=== PATIENT | female | born 1990 | race African-American/Black ===

== ENCOUNTER 2018-06-11 17:58 | Inpatient (IN) | payer MEDICAID, MEDICARE ==
[~2018-06-11] VITALS: Ht 157.5 cm; Wt 97.5 kg
[2018-06-11] MEDS ORDERED: SODIUM CHLORIDE 0.9% 1,000 ML IV ONE (18:33)
[2018-06-11] MEDS ORDERED: LEVETIRACETAM 500MG TABLET PO ONE (18:45)
[2018-06-11] MEDS ORDERED: LORAZEPAM 2MG/ML CPJ IV ONE (18:45)
[2018-06-11] MEDS ORDERED: LEVETIRACETAM 1000MG/100ML 100 ML IV ONE (18:45)
[2018-06-11] MEDS ORDERED: LORAZEPAM 2MG/ML CPJ ONE (18:46)
[2018-06-11 19:27] LABS: BASOPHILS % 0.5 % (0.0-2.0); EOSINOPHILS % 0.9 % (0.0-5.0); HEMATOCRIT. 39.1 % (36.0-48.0); LYMPHOCYTES % 27.2 % (20.0-50.0); MEAN CORPUSCULAR HEMOGLOBIN 27.2 pg (28.0-32.0); MEAN CORPUSCULAR VOLUME 81.5 fL (81.0-99.0); MEAN PLATELET VOLUME 8.1 fl (7.4-10.4); MONOCYTES % 9.2 % (2.0-8.0); NEUTROPHILS % 62.2 % (40.0-76.0); PLATELET 211 x1000/uL (130-400); RED CELL DISTRIBUTION WIDTH 14.7 % (11.6-14.6)
[2018-06-11 19:32] LABS: CHLORIDE 110 mEq/L (98-107)
[2018-06-11 19:36] LABS: PARTIAL THROMBOPLASTIN TIME 25.6 sec (23.4-31.0); PROTHROMBIN TIME 9.8 sec (9.1-11.1)
[2018-06-11 19:38] LABS: ETHANOL BLOOD < 10 mg/dL; HCG SCREEN NEGATIVE
[2018-06-11 19:42] LABS: CREATINE KINASE 106 IU/L (26-192)
[2018-06-11 22:26] VITALS: BP 109/64
[2018-06-11 22:30] VITALS: BP 135/67
[2018-06-12] VITALS (21 sets, daily range): BP systolic 90–154; BP diastolic 40–77
[2018-06-12] MEDS ORDERED: ALBU6.7H INH (00:04)
[2018-06-12] MEDS ORDERED: ACETAMINOPHEN 325MG TABLET PO PRN (00:45)
[2018-06-12] MEDS ORDERED: HYDROCODONE/ACETAMINOPHEN 5/325MG TABLET PO PRN (00:45)
[2018-06-12] MEDS: IPRATROPIUM/ALBUTEROL 0.5-3(2.5)MG/3ML NEB HHN SCH ×6 (01:03→21:38)
[2018-06-12 05:55] LABS: BG CARBOXYHEMOGLOBIN 0.3 % (0.5-1.5); BG DEOXYHEMOGLOBIN 0.6 % (0.0-5.0); BG FRACTION INSPIRED OXYGEN 100; BG HCO3 ACT 24.8 mmol/L (22.0-26.0); BG METHEMOGLOBIN 0.5 % (0.0-1.5); BG OXYGEN SATURATION 99.4 % (92.0-98.5); BG OXYHEMOGLOBIN 98.6 % (94.0-97.0); BG PCO2 40.5 mmHg (35.0-45.0); BG PH 7.404 (7.350-7.450); BG PO2 402.7 mmHg (75.0-100.0); BG SAMPLE SITE LEFT RADIAL; BG VENT MODE MASK - NRB
[2018-06-12 06:45] LABS: EOSINOPHILS % 2.4 % (0.0-5.0); HEMATOCRIT. 37.5 % (36.0-48.0); HEMOGLOBIN. 12.6 g/dL (12.0-16.0); LYMPHOCYTES % 42.9 % (20.0-50.0); MEAN CORPUSCULAR HEMOGLOBIN 27.6 pg (28.0-32.0); MEAN CORPUSCULAR VOLUME 82.3 fL (81.0-99.0); MEAN PLATELET VOLUME 8.2 fl (7.4-10.4); MONOCYTES % 9.5 % (2.0-8.0); NEUTROPHILS % 44.2 % (40.0-76.0); PLATELET 211 x1000/uL (130-400); RED BLOOD CELL COUNT 4.56 mill/uL (4.2-5.4); RED CELL DISTRIBUTION WIDTH 14.4 % (11.6-14.6)
[2018-06-12 08:00] LABS: CHLORIDE 111 mEq/L (98-107)
[2018-06-12] MEDS ORDERED: PHENYTOIN SODIUM 1,000 MG in SODIUM CHLORIDE 0.9% 100 ML IV NR (08:00)
[2018-06-12] MEDS ORDERED: LEVETIRACETAM 500MG TABLET PO SCH ×2 (09:00→21:00)
[2018-06-12] MEDS ORDERED: LEVETIRACETAM 250MG TABLET PO NR (13:00)
[2018-06-12] MEDS ORDERED: POTASSIUM CHLORIDE 20MEQ TABLET SR PO NR (13:00)
[2018-06-12] MEDS: LAMOTRIGINE 25MG TABLET PO SCH (15:03)
[2018-06-12] MEDS: LORAZEPAM 2MG/ML CPJ IV PRN (16:06)
[2018-06-12] MEDS ORDERED: PIPERACILLIN/TAZ 3.375G PREMIX 50 ML IV SCH (18:00)
[2018-06-12] MEDS ORDERED: LORAZEPAM 2MG/ML CPJ IV PRN (19:00)
[2018-06-12] MEDS ORDERED: LEVETIRACETAM 1,000 MG in SODIUM CHLORIDE 0.9% 100 ML IV SCH (19:00)
[2018-06-12] MEDS: PIPERACILLIN/TAZ 3.375G PREMIX 50 ML IV SCH (19:21)
[2018-06-12] MEDS: LEVETIRACETAM 1,000 MG in SODIUM CHLORIDE 0.9% 100 ML IV SCH (21:08)
[2018-06-13] VITALS (48 sets, daily range): BP systolic 83–145; BP diastolic 33–87
[2018-06-13] MEDS: PIPERACILLIN/TAZ 3.375G PREMIX 50 ML IV SCH ×4 (00:38→18:13)
[2018-06-13] MEDS: LORAZEPAM 2MG/ML CPJ IV PRN ×6 (00:55→21:57)
[2018-06-13 01:01] LABS: BG BASE EXCESS -0.6 mmol/L (-2.0-2.0); BG CARBOXYHEMOGLOBIN 0.5 % (0.5-1.5); BG DEOXYHEMOGLOBIN 0.8 % (0.0-5.0); BG FRACTION INSPIRED OXYGEN 28; BG HCO3 ACT 24.6 mmol/L (22.0-26.0); BG METHEMOGLOBIN 0.4 % (0.0-1.5); BG OXYGEN SATURATION 99.2 % (92.0-98.5); BG OXYHEMOGLOBIN 98.3 % (94.0-97.0); BG PCO2 42.6 mmHg (35.0-45.0); BG PO2 168.2 mmHg (75.0-100.0); BG SAMPLE SITE RIGHT RADIAL; BG TOTAL HEMOGLOBIN 13.1 g/dL (12.0-18.0); BG VENT MODE NASAL CANNULA
[2018-06-13] MEDS: IPRATROPIUM/ALBUTEROL 0.5-3(2.5)MG/3ML NEB HHN SCH ×4 (01:06→20:38)
[2018-06-13] MEDS ORDERED: LIDOCAINE HCL 1% 20ML VIAL (Pyxis) INJ ONE (09:06)
[2018-06-13] MEDS ORDERED: LORAZEPAM 2MG/ML CPJ IV NR ×2 (09:15→11:15)
[2018-06-13] MEDS: LAMOTRIGINE 25MG TABLET PO SCH (09:48)
[2018-06-13] MEDS: DEXT 5%/0.45% NACL 1000ML 1,000 ML IV SCH ×2 (09:48→23:12)
[2018-06-13] MEDS: LEVETIRACETAM 1,000 MG in SODIUM CHLORIDE 0.9% 100 ML IV SCH ×2 (10:42→21:30)
[2018-06-13] MEDS ORDERED: NON FORMULARY PATIENT HOME MED XX SCH (11:15)
[2018-06-13] MEDS ORDERED: PANTOPRAZOLE SODIUM 40 MG/VIAL IV SCH (11:30)
[2018-06-13] MEDS: METHYLPREDNISOLONE SOD SUCC 40 MG/ML VIAL IV SCH ×2 (11:59→21:30)
[2018-06-13] MEDS ORDERED: PHENYTOIN SODIUM 500MG in SODIUM CHLORIDE 0.9% 50ML IV NR (12:00)
[2018-06-13] MEDS ORDERED: PHENOBARBITAL SODIUM 130MG/ML 1ML IV NR (12:00)
[2018-06-13 12:03] LABS: BG BASE EXCESS -0.2 mmol/L (-2.0-2.0); BG CARBOXYHEMOGLOBIN 0.3 % (0.5-1.5); BG FRACTION INSPIRED OXYGEN 32; BG HCO3 ACT 24.8 mmol/L (22.0-26.0); BG METHEMOGLOBIN 0.4 % (0.0-1.5); BG OXYHEMOGLOBIN 98.3 % (94.0-97.0); BG PH 7.389 (7.350-7.450); BG PO2 155.9 mmHg (75.0-100.0); BG SAMPLE SITE LEFT RADIAL; BG TOTAL HEMOGLOBIN 13.2 g/dL (12.0-18.0); BG VENT MODE NASAL CANNULA
[2018-06-13] MEDS ORDERED: POTASSIUM CHLORIDE INJ 40 MEQ in DEXT 5% WATER 250 ML IV ONE (13:00)
[2018-06-13] MEDS ORDERED: LORAZEPAM 2MG/ML CPJ IV PRN (13:00)
[2018-06-13] MEDS ORDERED: GADOBENATE DIMEGLUMINE 529 MG/ML 10ML IV ONE (16:45)
[2018-06-13 17:20] LABS: CHLORIDE 108 mEq/L (98-107)
[2018-06-13 17:44] LABS: CLARITY URINE CLEAR (CLEAR); COLOR URINE YELLOW (YELLOW); KETONES URINE 1+ (NEGATIVE); LEUKOCYTE ESTERASE URINE NEGATIVE (NEGATIVE); NITRITE URINE NEGATIVE (NEGATIVE); OCCULT BLOOD URINE 1+ (NEGATIVE); PH URINE 5.5 (4.5-8.0); PROTEIN URINE NEGATIVE (NEGATIVE); SPECIFIC GRAVITY URINE 1.024 (1.005-1.030); UROBILINOGEN URINE 0.2 E.U./dL (0.2-1.0)
[2018-06-13] MEDS ORDERED: SODIUM CHLORIDE 0.9% IV SCH (21:00)
[2018-06-13] MEDS ORDERED: FOSPHENYTOIN SODIUM IV SCH (21:00)
[2018-06-14] VITALS (7 sets, daily range): BP systolic 93–154; BP diastolic 48–75
[2018-06-14] MEDS: DEXT 5%/0.45% NACL 1000ML 1,000 ML IV SCH (00:55)
[2018-06-14] MEDS: IPRATROPIUM/ALBUTEROL 0.5-3(2.5)MG/3ML NEB HHN SCH ×2 (01:40→05:32)
[2018-06-14] MEDS: LORAZEPAM 2MG/ML CPJ IV PRN ×2 (02:45→06:38)
[2018-06-14] MEDS: PIPERACILLIN/TAZ 3.375G PREMIX 50 ML IV SCH ×2 (05:22→06:00)
[2018-06-14 05:31] LABS: HEMATOCRIT 37.8 % (36.0-48.0); HEMOGLOBIN 12.6 g/dL (12.0-16.0); MEAN CORPUSCULAR HEMOGLOBIN 27.2 pg (28.0-32.0); MEAN CORPUSCULAR VOLUME 81.8 fL (81.0-99.0); PLATELET 224 x1000/uL (130-400); RED BLOOD CELL COUNT 4.62 mill/uL (4.2-5.4); RED CELL DISTRIBUTION WIDTH 14.3 % (11.6-14.6)
[2018-06-14 05:35] LABS: CHLORIDE 108 mEq/L (98-107)
== END 2018-06-14 07:31 | disposition short-term general hospital (02) | DRG 53 ==
LOC: ER 19:13 → 6WST 20:01 → EDBEDREQ 20:03 → ENRESERV 20:43 → 5EST 06-12 13:58 → MICUSO 06-12 17:45
PROVIDERS: ADMIT Internal Medicine; ATTEND Internal Medicine
PROC: 02HV33Z Insertion of Infusion Device into Superior Vena Cava, Percutaneous Approach (ICD-10-PCS; principal; 2018-06-13)
PROC: B548ZZA Ultrasonography of Superior Vena Cava, Guidance (ICD-10-PCS; 2018-06-13)
DX: G40.803 Other epilepsy, intractable, with status epilepticus (principal); G83.84 Todd's paralysis (postepileptic); E66.01 Morbid (severe) obesity due to excess calories; J45.901 Unspecified asthma with (acute) exacerbation; I48.92 Unspecified atrial flutter; E87.6 Hypokalemia; Z68.35 Body mass index [BMI] 35.0-35.9, adult; Z91.19 Patient's noncompliance with other medical treatment and regimen; J45.909 Unspecified asthma, uncomplicated; Z82.0 Family history of epilepsy and other diseases of the nervous system; Z91.14 Patient's other noncompliance with medication regimen; G43.009 Migraine without aura, not intractable, without status migrainosus; Z68.39 Body mass index [BMI] 39.0-39.9, adult
CPT/HCPCS: 36415; 36569; 36600; 70553; 71045; 76937; 80048; 80185; 82375; 82550; 82805; 82962; 83735; 84703; 85027; 93005; 94640; 96365; 96375; 99291; A9577; C1725; C9113; G0482; J1165; J1953; J2060; J2543; J2560; J2920; J3480; J3490; J7030; J7040; J7042; J7050; J7060; J7620; Q2009; A4315

== ENCOUNTER 2018-07-07 19:36 | Emergency (ER) | payer MEDICARE ==
[~2018-07-07] VITALS: Ht 167.6 cm; Wt 82.0 kg
[~2018-07-07 19:36] MED LIST: ALBU6.7H INH
[2018-07-07 19:37] VITALS: BP 114/68
== END 2018-07-07 20:16 | disposition left against medical advice (07) ==
LOC: ER 19:36
DX: Z53.21 Procedure and treatment not carried out due to patient leaving prior to being seen by health care provider (principal)

== ENCOUNTER 2020-11-10 19:08 | Emergency (ER) | payer OTHER ==
[~2020-11-10] VITALS: Ht 170.2 cm; Wt 68.0 kg
[~2020-11-10 19:08] MED LIST changes: -ALBU6.7H INH; +ALBU6.7H11 INH
[2020-11-10 19:11] VITALS: BP 113/79
== END 2020-11-10 20:49 | disposition left against medical advice (07) ==
LOC: ER 19:08 → EDUNIT# 19:08 → ER 20:49
DX: G40.909 Epilepsy, unspecified, not intractable, without status epilepticus (principal); J45.909 Unspecified asthma, uncomplicated; Z91.19 Patient's noncompliance with other medical treatment and regimen
CPT/HCPCS: 99283; Z7610